=== PATIENT | female | born 1965 | race African-American/Black ===

== ENCOUNTER 2022-02-01 12:25 | Emergency (ER) | payer BC ==
[~2022-02-01] VITALS: Ht 175.3 cm; Wt 74.8 kg
[~2022-02-01 12:25] MED LIST: VALS80CA PO; [UNRECOGNIZED DRUG - CODE] PO
[2022-02-01 12:28] VITALS: BP 114/84
--- NOTE | 2022-02-01 13:07 | NUR ---
swabbed for covid and walked to lab.
--- NOTE | 2022-02-01 13:10 | NUR ---
pt c/o body aches, cough, dizziness x3 days
[2022-02-01 13:51] LABS: BASOPHILS % (AUTO) 1.3 % (0.0-2.0); EOSINOPHILS % (AUTO) 0.1 % (0.0-4.0); HEMATOCRIT 39.6 % (36-48); HEMOGLOBIN 12.9 g/dL (12.0-16.0); LYMPHOCYTES # (AUTO) 1.2 K/uL (2.5-16.5); LYMPHOCYTES % (AUTO) 45.9 % (20.5-51.1); MEAN CORPUSCULAR HEMOGLOBIN 25 pg (27-31); MEAN CORPUSCULAR HGB CONC 33 g/dL (33-37); MEAN CORPUSCULAR VOLUME 75.9 fL (80-94); MONOCYTES # (AUTO) 0.4 K/uL (0.8-1.0); MONOCYTES % (AUTO) 14.1 % (1.7-9.3); NEUTROPHILS % (AUTO) 38.6 % (42.2-75.2); PLATELET COUNT (AUTO) 221 K/uL (140-450); RED BLOOD CELL COUNT(AUTO) 5.22 MIL/uL (4.20-5.40); RED CELL DISTRIBUTION WIDTH 14.4 % (11.6-13.7); WHITE BLOOD COUNT (AUTO) 2.6 K/uL (4.8-10.8)
[2022-02-01 14:07] LABS: ANION GAP 11.5 (8-16); CARBON DIOXIDE 28.3 mmol/L (21-32)
[2022-02-01 14:09] LABS: POTASSIUM 2.8 mmol/L (3.5-5.1)
[2022-02-01] MEDS ORDERED: POTASSIUM CHLORIDE 20% 40 MEQ/15 ML UDC PO ONE (14:10)
[2022-02-01] MEDS ORDERED: KCL 20 MEQ/WATER INJ PREMIX 200 ML IV ONE (14:10)
[2022-02-01] MEDS ORDERED: NACL 0.9% 1,000 ML IV ONE (14:10)
[2022-02-01] MEDS ORDERED: PROM118S5 PO (14:52)
[2022-02-01] MEDS ORDERED: BENZ200C4 PO (14:52)
[2022-02-01] MEDS ORDERED: NIRM1TAB PO (14:52)
[2022-02-01 17:55] VITALS: BP 111/75
--- NOTE | 2022-02-01 17:55 | NUR ---
Patient discharged with v/s stable. Written and verbal after care instructions given and explained. Patient alert, oriented and verbalized understanding of instructions. Ambulatory with steady gait. All questions addressed prior to discharge. ID band removed. Patient advised to follow up with PMD. Rx of PAXLOVID CO-PACK, PROMETHAZINE given. Patient educated on indication of medication including possible reaction and side effects. Opportunity to ask questions provided and answered.
== END 2022-02-01 17:55 | disposition home or self-care (01) ==
LOC: MED 12:25
DX: U07.1 COVID-19 (principal); B34.9 Viral infection, unspecified; E86.0 Dehydration; E87.6 Hypokalemia; R53.1 Weakness; I10 Essential (primary) hypertension; Z79.899 Other long term (current) drug therapy; Z85.850 Personal history of malignant neoplasm of thyroid; Z88.1 Allergy status to other antibiotic agents; Z88.2 Allergy status to sulfonamides
CPT/HCPCS: 36415; 71045; 80048; 85025; 87426; 87804; 96365; 96366; 99284; J3480; J7030; Q0092

== ENCOUNTER 2023-03-05 19:56 | Emergency (ER) | payer BC ==
[~2023-03-05] VITALS: Ht 175.3 cm; Wt 69.9 kg
[~2023-03-05 19:56] MED LIST changes: +BENZ200C4 PO; +NIRM1TAB PO; +PROM118S5 PO
[2023-03-05 20:03] VITALS: BP 139/94; PULSE 63; RESP 20; TEMP 97.2; O2SAT 97
--- NOTE | 2023-03-05 20:23 | NUR ---
seen and examined by MIGUEL ANGEL.
[2023-03-05] MEDS ORDERED: NAPR-54 PO ×2 (20:52→20:55)
[2023-03-05 21:05] VITALS: BP 139/94; PULSE 63; RESP 20; TEMP 97.2; O2SAT 97
--- NOTE | 2023-03-05 21:05 | NUR ---
Patient discharged with v/s stable. Written and verbal after care instructions given and explained Dr Taylor. Patient alert, oriented and verbalized understanding of instructions. Ambulatory with steady gait. All questions addressed prior to discharge. ID band removed. Patient advised to follow up with PMD. Rx of naprosyn given. Patient educated on indication of medication including possible reaction and side effects. Opportunity to ask questions provided and answered.
== END 2023-03-05 21:05 | disposition home or self-care (01) ==
LOC: MED 19:56
DX: M25.561 Pain in right knee (principal); E11.9 Type 2 diabetes mellitus without complications; I10 Essential (primary) hypertension; E03.9 Hypothyroidism, unspecified; Z79.4 Long term (current) use of insulin; Z79.899 Other long term (current) drug therapy
CPT/HCPCS: 99282